=== PATIENT | female | born 1980 | race African-American/Black ===

== ENCOUNTER 2016-11-16 00:04 | Emergency (ER) | payer MEDICAID, OTHER ==
[~2016-11-16] VITALS: Ht 162.6 cm; Wt 77.1 kg
[~2016-11-16 00:04] MED LIST: ADALAT10 MG ORAL; AMOXICILLIN500 MG ORAL; TRAMADOL HCL50 MG ORAL
[2016-11-16] MEDS ORDERED: LORazepam Inj 2mg/ml 1ml IV ONE (00:45)
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
[2016-11-16 00:52] LABS: BASOPHILS % (AUTO) 1.9 % (0.0-2.0); EOSINOPHILS % (AUTO) 0.7 % (0.0-3.0); LYMPHOCYTES % (AUTO) 31.4 % (20.0-45.0); MEAN CORPUSCULAR HGB CONC 32.7 G/DL (32.0-36.0); MEAN CORPUSCULAR VOLUME 92 FL (80-99); MEAN PLATELET VOLUME 5.4 FL (6.5-10.1); MONOCYTES % (AUTO) 5.7 % (1.0-10.0); NEUTROPHILS % (AUTO) 60.4 % (45.0-75.0); PLATELET COUNT 403 K/UL (150-450); RED BLOOD COUNT 4.55 M/UL (4.20-5.40); RED CELL DISTRIBUTION WIDTH 15.2 % (11.6-14.8); WHITE BLOOD COUNT 10.1 K/UL (4.8-10.8)
[2016-11-16] MEDS ORDERED: Tubing IV Cassette IV ONE (00:52)
[2016-11-16 01:07] LABS: ALANINE AMINOTRANSFERASE 20 U/L (3-33); ALBUMIN/GLOBULIN RATIO 1.1 (1.0-2.7); ANION GAP 23 (5-15); ASPARTATE AMINO TRANSFERASE 27 U/L (5-40); CALCIUM 8.8 mg/dL (8.6-10.2); CARBON DIOXIDE 18 mEQ/L (20-30); CHLORIDE 100 mEQ/L (98-107); CREATININE 0.7 mg/dL (0.5-0.9); GLOMERULAR FILTRATION RATE > 60 mL/min (>60); HEMOLYSIS 98; SODIUM 141 mEQ/L (135-145); TOTAL PROTEIN 7.9 g/dL (6.6-8.7); TROPONIN I < 0.30 ng/mL (<=0.30)
[2016-11-16 01:17] LABS: CKMB < 1.5 ng/mL (< 3.8)
[2016-11-16] MEDS ORDERED: Metoprolol 50mg tab ORAL ONE (01:30)
[2016-11-16 02:05] VITALS: BP 135/89
[2016-11-16] MEDS ORDERED: ATENOLOL50 MG ORAL (02:33)
[2016-11-16 03:10] VITALS: BP 135/89
--- NOTE | 2016-11-16 10:56 | Diagnostic Imaging Report ---
Indication: Chest Pain Comparison: 10/25/15 A single view chest radiograph was obtained. Findings: Cardiomediastinal appearance is within normal limits for age. Pulmonary vascularity is appropriate. The diaphragmatic contour is smooth and costophrenic angles are sharp. No pleural effusions are identified. The bones are unremarkable. Impression: No acute findings
--- NOTE | 2016-11-19 18:04 | Cardiology Report ---
APPROVED REPORT EKG Measurement Heart [id number] Sinus tachycardia Possible Left atrial enlargement Borderline ECG
== END 2016-11-16 03:12 | disposition home or self-care (01) ==
LOC: EDBD 00:04 → EMR 01:05
DX: R07.9 Chest pain, unspecified (principal); I10 Essential (primary) hypertension; F43.0 Acute stress reaction; Z82.49 Family history of ischemic heart disease and other diseases of the circulatory system; Z91.14 Patient's other noncompliance with medication regimen
CPT/HCPCS: 36415; 71010; 80053; 82550; 82553; 84484; 85025; 93005; 96374; 96375

== ENCOUNTER 2016-11-29 15:44 | Emergency (ER) | payer OTHER ==
[~2016-11-29] VITALS: Ht 162.6 cm; Wt 78.9 kg
[~2016-11-29 15:44] MED LIST changes: +ATENOLOL50 MG ORAL
--- NOTE | 2016-11-29 16:24 | Emergency Room Report ---
History of Present Illness General Chief Complaint: Upper Respiratory Illness Source: Medical Record (SAYDA RODGERS) Present Illness HPI The patient is a 36-year-old female presenting with one month of cough and sore throat. The patient was seen in this emergency department 10 days prior for the same complaint and discharged with a prescription for atenolol. The patient states that she has had continued productive cough. Patient experiences a 10 out of 10 dull ache to the chest which occurs only with coughing and also has pain with swallowing. The patient denies any sick contacts or recent travel. The patient denies having a flu shot this year. The patient does admit to fever and chills Patient denies other symptoms including nausea, vomiting, abdominal pain, rash, shortness of breath (SAYDA RODGERS.Rebecca) Allergies: Coded Allergies: No Known Allergies (Unverified , 10/25/15) Patient History Past Medical History: see triage record Pertinent Family History: none Last Menstrual Period: 11/13 Now: No : 3 Para: 3 Reviewed Nursing Documentation: PMH: Agreed, PSxH: Agreed (SAYDA RODGERS P.ARaquel) Nursing Documentation-PMH Hx Hypertension: Yes (SAYDA RODGERS P.ARaquel) Review of Systems All Other Systems: negative except mentioned in HPI (SAYDA RODGERS P.ARaquel) Physical Exam Vital Signs Date Time Temp Pulse Resp B/P Pulse Ox O2 Delivery O2 Flow Rate FiO2 11/29/16 15:46 98.1 107 24 153/97 98 Room Air Sp02 EP Interpretation: reviewed, normal General Appearance: no apparent distress, alert, GCS 15, non-toxic Head: normocephalic, atraumatic Eyes: bilateral eye PERRL, bilateral eye normal inspection ENT: hearing grossly normal, normal pharynx, normal voice, TMs + canals normal , uvula midline, moist mucus membranes, tonsillar swelling, pharyngeal erythema , tonsillar exudate Neck: full range of motion, supple/symm/no masses Respiratory: chest non-tender, lungs clear, normal breath sounds, no respiratory distress, no accessory muscle use, no wheezing, speaking full sentences Gastrointestinal: normal bowel sounds, non tender, soft, non-distended, no guarding, no rebound Musculoskeletal: back normal, gait/station normal, normal range of motion, non- tender Neurologic: alert, oriented x3, responsive, motor strength/tone normal, sensory intact, speech normal Psychiatric: judgement/insight normal, memory normal, mood/affect normal, no suicidal/homicidal ideation Skin: normal color, no rash, warm/dry, well hydrated Lymphatic: adenopathy - cervical\ (SAYDA RODGERS P.A.) Medical Decision Making PA Attestation Dr. Rowe is my supervising physician. Patient management was discussed with my supervising physician (SAYDA RODGERS PCarlos) Diagnostic Impression: Primary Impression: Pharyngitis, acute ER Course The patient is a 36-year-old female presenting with one month of cough and sore throat. Differential diagnosis include but not limited to pharyngitis, sinusitis, AOM, bronchitis, PNA Physical exam: Afebrile. No apparent distress HEENT: There is bilateral tonsillar edema, erythema, and exudate. Uvula midline. Otherwise unremarkable. Lungs are clear to auscultation bilaterally. The patient insists on a chest x-ray Chest x-ray unremarkable. The patient will be treated for pharyngitis with amoxicillin. ER precautions are given (SAYDA RODGERS P.A.) ER Course I agree with PA HPI and PE, as well as their assessment/plan. I also concur with PA review of imaging and rhythm strip without additional interpretation. (HUI ROWE M.D.) Chest X-Ray Diagnostic Results EP Interpretation: Yes Findings: no consolidation, no effusion, no pneumothorax Number of Views: 1 PA Scribe Text I am acting as scribe for my supervising physician. My supervising physician's interpretation of the chest xrays are there is no consolidation, no effusion, no acute cardiopulmonary disease, no pneumothorax (SAYDA RODGERS P.A.) Last Vital Signs Date Time Temp Pulse Resp B/P Pulse Ox O2 Delivery O2 Flow Rate FiO2 11/29/16 16:04 107 24 Room Air 11/29/16 15:46 98.1 153/97 98 Status: improved (SAYDA RODGERS P.A.) Disposition: HOME, SELF-CARE Condition: Improved Scripts Guaifenesin/Dextromethorphan (Robitussin Cough-Chest Dm Liq) 118 Ml Liquid 10 ML PO Q4HR, #118 ML Prov: SAYDA RODGERS 11/29/16 Amoxicillin* (AMOXIL*) 500 Mg Capsule 500 MG ORAL Q12HR, #20 CAP Prov: SAYDA RODGERS 11/29/16 Referrals: NON PHYSICIAN (PCP) SAYDA RODGERS Nov 29, 2016 16:24 HUI ROWE M.D. Dec 01, 2016 03:47
[2016-11-29 16:55] VITALS: BP 153/97
[2016-11-29] MEDS ORDERED: AMOXICILLIN500 MG ORAL (17:07)
[2016-11-29] MEDS ORDERED: ROBITUSSIN COU118 M4 PO (17:07)
[2016-11-29 17:13] VITALS: BP 153/97
--- NOTE | 2016-11-30 10:07 | Diagnostic Imaging Report ---
Indication: Cough Technique: XRAY CHEST 1 V Comparison: 11/16/16 Findings: Cardiomediastinal silhouette is stable. There is no consolidation or pleural effusion. Artifact overlying the right apex limits evaluation. Osseous structures demonstrate no acute abnormality. Impression: Limited examination without obvious acute cardiopulmonary disease. Followup recommended as indicated.
== END 2016-11-29 17:16 | disposition home or self-care (01) ==
LOC: EMR 16:10
DX: J02.9 Acute pharyngitis, unspecified (principal); I10 Essential (primary) hypertension
CPT/HCPCS: 71010; 99284

== ENCOUNTER 2016-12-09 20:58 | Emergency (ER) | payer OTHER ==
[~2016-12-09] VITALS: Ht 162.6 cm; Wt 77.1 kg
[~2016-12-09 20:58] MED LIST changes: +ROBITUSSIN COU118 M4 PO
[2016-12-09] MEDS ORDERED: ARTIFICIAL TEAR15 ML LEFT EYE (21:45)
[2016-12-09 22:52] VITALS: BP 161/114
--- NOTE | 2016-12-13 13:12 | Emergency Room Report ---
History of Present Illness General Chief Complaint: Eye Problems Source: Patient Present Illness HPI Patient is a 36-year-old female who presented after acute onset of the increased left eye redness. Patient recently been seen for cough. She was noted to have increased red area to the left eye. Patient reported having a moderate pain. She denied visual changes. She had not been vomiting or having diarrhea. She denied prior history of blood thinner use or coagulopathy.she denied recent trauma Allergies: Coded Allergies: No Known Allergies (Unverified , 10/25/15) Patient History Past Medical History: see triage record Last Menstrual Period: nov Reviewed Nursing Documentation: PMH: Agreed, PSxH: Agreed Nursing Documentation-PMH Hx Hypertension: Yes Review of Systems All Other Systems: negative except mentioned in HPI Physical Exam Vital Signs Date Time Temp Pulse Resp B/P Pulse Ox O2 Delivery O2 Flow Rate FiO2 12/09/16 21:17 98.2 123 18 161/114 98 Room Air General Appearance: well appearing, no apparent distress, alert, GCS 15 Head: normocephalic, atraumatic Eyes: bilateral eye PERRL, bilateral eye other - subconjunctival hemorrage ENT: hearing grossly normal, normal voice Neck: full range of motion, supple Respiratory: no respiratory distress, speaking full sentences Cardiovascular #1: normal peripheral pulses, regular rate, rhythm, no edema Gastrointestinal: normal inspection, soft Musculoskeletal: no calf tenderness Neurologic: normal inspection, alert, oriented x3, responsive, service tech/welder III-XII nml as tested, normal gait Psychiatric: mood/affect normal Skin: no rash Medical Decision Making Diagnostic Impression: Primary Impression: Subconjunctival hemorrhage of left eye ER Course Patient presented for eye redness.Differential diagnosis included but wasn't limited to glaucoma, iritis, corneal abrasion, bacterial conjunctivitis, viral conjunctivitis, subconjunctival hemorrhage. Patient's benign exam and does not appear to require any further imaging or laboratory testing at this time. The patient was noted to have exam consistent with is a conjunctival hemorrhage. This appears to be due to the patient's recent cough.The patient is advised to follow up with primary care doctor in 1-2 days. Patient is advised to return if any worsening condition or if any changes in status that are concerning. Last Vital Signs Date Time Temp Pulse Resp B/P Pulse Ox O2 Delivery O2 Flow Rate FiO2 12/09/16 22:52 98.2 85 18 161/114 98 Room Air Status: improved Disposition: HOME, SELF-CARE Condition: Stable Scripts Dextran 70/Hypromellose (ARTIFICIAL TEARS EYE DROPS*) 15 Ml Drops 1 DROP LEFT EYE THREE TIMES A DAY, #15 ML 0 Refills Prov: Musa Lozada 12/09/16 Referrals: [facility],REFERRING (PCP) Patient Instructions: Subconjunctival Hemorrhage Musa Lozada Dec 13, 2016 13:12
== END 2016-12-09 22:54 | disposition home or self-care (01) ==
LOC: EMR 21:51
DX: H11.32 Conjunctival hemorrhage, left eye (principal); I10 Essential (primary) hypertension
CPT/HCPCS: 99283

== ENCOUNTER 2018-05-05 14:07 | Emergency (ER) | payer MEDICAID, OTHER ==
[~2018-05-05] VITALS: Ht 162.6 cm; Wt 93.4 kg
[~2018-05-05 14:07] MED LIST changes: +ARTIFICIAL TEAR15 ML LEFT EYE
--- NOTE | 2018-05-05 14:38 | Emergency Room Report ---
History of Present Illness General Chief Complaint: Female Urogenital Problems Source: Patient Present Illness HPI 37-year-old female presents to the emergency department complaining of strong malodorous urine along with urinary frequency, fatigue. 1 week. Patient states she's been taking Macrobid which was prescribed by her PCP with no relief of her symptoms. Patient denies recent unprotected intercourse she denies nausea, vomiting, fevers, chills, external genital lesions, rashes, swollen tender lymph nodes or joint pain. Patient denies low back pain she reports abdominal bloating in the lower portion of the abdomen she denies tenderness. Denies constipation or diarrhea. Allergies: Coded Allergies: No Known Allergies (Unverified , 10/25/15) Patient History Past Medical History: see triage record Past Surgical History: none Pertinent Family History: none Last Menstrual Period: unk Now: No Reviewed Nursing Documentation: PMH: Agreed; PSxH: Agreed Nursing Documentation-PMH Past Medical History: No History, Except For Hx Hypertension: Yes Review of Systems All Other Systems: negative except mentioned in HPI Physical Exam Vital Signs Date Time Temp Pulse Resp B/P (MAP) Pulse Ox O2 Delivery O2 Flow Rate FiO2 05/05/18 14:19 97.9 113 20 134/93 98 97.9 Sp02 EP Interpretation: reviewed, normal General Appearance: no apparent distress, alert, GCS 15, non-toxic Head: normocephalic, atraumatic ENT: hearing grossly normal, normal voice Neck: full range of motion Respiratory: lungs clear, normal breath sounds, speaking full sentences Cardiovascular #1: tachycardia Gastrointestinal: non tender, soft Rectal: deferred Genitourinary: normal inspection, no CVA tenderness Musculoskeletal: back normal, gait/station normal, normal range of motion, non- tender Neurologic: alert, oriented x3, responsive, motor strength/tone normal, sensory intact, speech normal, grossly normal Psychiatric: judgement/insight normal Skin: normal color, no rash, warm/dry, well hydrated Medical Decision Making PA Attestation Dr. nunez is my supervising Physician whom patient management has been discussed with. Diagnostic Impression: Primary Impression: Urinary tract infection Qualified Codes: N30.01 - Acute cystitis with hematuria ER Course 37-year-old female presents to the emergency department complaining of strong malodorous urine along with urinary frequency, fatigue. 3 days. Patient states she's been taking Macrobid which was prescribed by her PCP with no relief of her symptoms. Patient denies recent unprotected intercourse she denies nausea, vomiting, fevers, chills, external genital lesions, rashes, swollen tender lymph nodes or joint pain. Patient denies low back pain she reports abdominal bloating in the lower portion of the abdomen she denies tenderness. Denies constipation or diarrhea. Ddx considered but are not limited to UTi , Pyelo, STI, Stone, Cystitis, just to name a few. Vital signs: pt. is afebrile, however tachycardic H&PE are most consistent with UTI ORDERS: - UA labs are attached :20-30 white blood cells, many bacteria, 2+ leukocytes and negative nitrites -Urine HCG: Negative ED INTERVENTIONS: None required at this time. DISCHARGE: At this time pt. is stable for d/c to home. Will provide printed patient care instructions, and any necessary prescriptions. Care plan and follow up instructions have been discussed with the patient prior to discharge. Labs Test 05/05/18 14:41 Urine Color Brown Urine Appearance Turbid Urine pH 6 (4.5-8.0) Urine Specific [place] 1.020 (1.005-1.035) Urine Protein 2+ (NEGATIVE) Urine Glucose (UA) Negative (NEGATIVE) Urine Ketones 1+ (NEGATIVE) Urine Occult Blood 2+ (NEGATIVE) Urine Nitrite Negative (NEGATIVE) Urine Bilirubin Negative (NEGATIVE) Urine Urobilinogen 4 MG/DL (0.0-1.0) Urine Leukocyte Esterase 2+ (NEGATIVE) Urine RBC 2-4 /HPF (0 - 2) Urine WBC 20-30 /HPF (0 - 2) Urine Squamous Epithelial Cells Moderate /LPF (NONE/OCC) Urine Bacteria Many /HPF (NONE) Urine HCG, Qualitative Negative (NEGATIVE) Last Vital Signs Date Time Temp Pulse Resp B/P (MAP) Pulse Ox O2 Delivery O2 Flow Rate FiO2 05/05/18 14:19 97.9 113 20 134/93 98 97.9 Disposition: HOME, SELF-CARE Condition: Stable Scripts Fluconazole (FLUCONAZOLE) 100 Mg Tablet 100 MG ORAL DAILY for 1 Day, #3 TAB 0 Refills Prov: Geraldine Coreas 05/05/18 Phenazopyridine Hcl* (PYRIDIUM*) 200 Mg Tablet 200 MG ORAL THREE TIMES A DAY for 3 Days, #3 TAB 0 Refills Prov: Geraldine Coreas 05/05/18 Trimethoprim/Sulfamethoxazole 160/800* (BACTRIM DS TABLET*) 1 Each Tablet 1 TAB ORAL TWICE A DAY for 7 Days, #14 TAB Prov: Geraldine Coreas 05/05/18 Departure Forms: Return to Work Return to Work Date: May 08, 2018 Work Restrictions: None Other Restrictions: may return sooner if symptoms resolve. Return to Full Activity: May 08, 2018 Patient Instructions: Urinary Tract Infection Additional Instructions: Take medications as directed. Follow up with a Primary Care Provider in 3-5 days, even if your symptoms have resolved. --Please review list of primary care clinics, if you do not already have a primary care provider Return sooner to ED if new symptoms occur, or current symptoms become worse. - Please note that this Emergency Department Report was dictated using [employer] technology software, occasionally this can lead to erroneous entry secondary to interpretation by the dictation equipment. Geraldine Coreas May 05, 2018 14:38
[2018-05-05 14:53] LABS: APPEARANCE,URINE TURBID; BILIRUBIN, URINE NEGATIVE (NEGATIVE); COLOR,URINE BROWN; GLUCOSE, URINE (UA) NEGATIVE (NEGATIVE); KETONES,URINE 1+ (NEGATIVE); LEUKOCYTE ESTERASE ,URINE 2+ (NEGATIVE); NITRITE,URINE NEGATIVE (NEGATIVE); PH,URINE 6 (4.5-8.0); PROTEIN,URINE 2+ (NEGATIVE); UROBILINOGEN,URINE 4 MG/DL (0.0-1.0)
[2018-05-05] MEDS ORDERED: BACTRIM DS TAB1 EAC1 ORAL (15:48)
[2018-05-05] MEDS ORDERED: PHENAZOPYRIDIN200 MG ORAL (15:48)
[2018-05-05] MEDS ORDERED: FLUCONAZOLE100 MG ORAL (15:55)
[2018-05-05 16:02] VITALS: BP 166/111
[2018-05-05 16:03] VITALS: BP 166/111
== END 2018-05-05 16:04 | disposition home or self-care (01) ==
LOC: EMR 14:55
DX: N39.0 Urinary tract infection, site not specified (principal); I10 Essential (primary) hypertension
CPT/HCPCS: 81003; 81025; 87086; 87181; 99284

== ENCOUNTER 2019-08-18 14:45 | Emergency (ER) | payer MEDICAID ==
[~2019-08-18] VITALS: Ht 162.6 cm; Wt 80.3 kg
[~2019-08-18 14:45] MED LIST changes: +BACTRIM DS TAB1 EAC1 ORAL; +FLUCONAZOLE100 MG ORAL; +PHENAZOPYRIDIN200 MG ORAL
--- NOTE | 2019-08-18 14:55 | NUR ---
ED Nurse Note: Patient walked into ED from home c/o heavy vaginal bleeding for 1 week. patient reports she was changing 6-7 pads a day for last week, and now she is changing 2-3 pads a day. patient c/o fatigue and weakness. patient is alert awake x4 ambulatory steady gait, breathing unlabored and even, speaking in full sentences.
--- NOTE | 2019-08-18 15:43 | NUR ---
ED Nurse Note: patient taken to US
[2019-08-18 15:55] LABS: BASOPHILS % (AUTO) 1.7 % (0.0-2.0); EOSINOPHILS % (AUTO) 1.4 % (0.0-3.0); HEMATOCRIT 36.7 % (37.0-47.0); HEMOGLOBIN 11.2 G/DL (12.0-16.0); LYMPHOCYTES % (AUTO) 22.5 % (20.0-45.0); MEAN CORPUSCULAR VOLUME 79 FL (80-99); MONOCYTES % (AUTO) 9.2 % (1.0-10.0); NEUTROPHILS % (AUTO) 65.3 % (45.0-75.0); PLATELET COUNT 415 K/UL (150-450); RED BLOOD COUNT 4.67 M/UL (4.20-5.40); RED CELL DISTRIBUTION WIDTH 14.7 % (11.6-14.8); WHITE BLOOD COUNT 9.2 K/UL (4.8-10.8)
[2019-08-18 16:03] LABS: INR 0.9 (0.9-1.1)
[2019-08-18 16:25] LABS: ALANINE AMINOTRANSFERASE 27 U/L (12-78); ALBUMIN 3.5 G/DL (3.4-5.0); ALBUMIN/GLOBULIN RATIO 0.8 (1.0-2.7); ALKALINE PHOSPHATASE 73 U/L (46-116); ANION GAP 9 mmol/L (5-15); ASPARTATE AMINO TRANSFERASE 12 U/L (15-37); BILIRUBIN,TOTAL 0.2 MG/DL (0.2-1.0); BLOOD UREA NITROGEN 14 mg/dL (7-18); CALCIUM 9.5 MG/DL (8.5-10.1); CARBON DIOXIDE 24 MMOL/L (21-32); CHLORIDE 105 MMOL/L (98-107); CREATININE 0.7 MG/DL (0.55-1.30); POTASSIUM 3.4 MMOL/L (3.5-5.1); SODIUM 138 MMOL/L (136-145)
--- NOTE | 2019-08-18 16:44 | Diagnostic Imaging Report ---
Indication:Lower abdominal and pelvic pain Technique: Grayscale and duplex Doppler imaging of the pelvis performed utilizing a transabdominal and endovaginal scan. Comparison: None Findings: The size, contour, and configuration of the uterus is within normal limits. The endometrium is uniformly echogenic and normal in thickness. Endometrium measures 4.2 mm. Uterus measures 9 x 5.6 x 4.6 cm. The ovaries appear normal bilaterally with good dopplerable blood flow. Few ovarian follicles are noted. There is a small amount of free fluid identified. Right ovary measures 4.8 x 4.4 x 2.4 cm. Left ovary 4.5 x 3.3 x 3.5 cm. IMPRESSION: Negative pelvic ultrasound. No acute findings.
[2019-08-18] MEDS ORDERED: FERROUS SULFAT325 MG ORAL (17:00)
--- NOTE | 2019-08-18 17:00 | Emergency Room Report ---
History of Present Illness General Chief Complaint: Female Urogenital Problems Source: Patient Present Illness HPI 39-year-old female presents with vaginal bleeding since July 31, patient has been going up to 8 pads now down to 2 pads, patient was feeling lightheaded , x1 day, no aggravating relieving factors severity was moderate lasting throughout the day, patient was worried about her blood loss, patient denies any chest pain shortness of breath, no dyspnea on exertion, patient presents for evaluation of her vaginal bleeding. Allergies: Coded Allergies: No Known Allergies (Unverified , 10/25/15) Patient History Past Medical History: see triage record Last Menstrual Period: 08/04/19 Now: No Reviewed Nursing Documentation: PMH: Agreed; PSxH: Agreed Nursing Documentation-PMH Past Medical History: No History, Except For Hx Hypertension: Yes Review of Systems All Other Systems: negative except mentioned in HPI Physical Exam Vital Signs Date Time Temp Pulse Resp B/P (MAP) Pulse Ox O2 Delivery O2 Flow Rate FiO2 08/18/19 14:48 97.9 98 18 157/105 (122) 98 Sp02 EP Interpretation: reviewed, normal General Appearance: well appearing, no apparent distress, alert Head: normocephalic, atraumatic Eyes: bilateral eye PERRL, bilateral eye EOMI ENT: uvula midline, moist mucus membranes Neck: supple, thyroid normal, supple/symm/no masses Respiratory: lungs clear, no respiratory distress, no retraction, no accessory muscle use Cardiovascular #1: normal peripheral pulses, regular rate, rhythm, no edema, no gallop, no murmur Gastrointestinal: non tender, soft, no guarding, no rebound Musculoskeletal: normal inspection Neurologic: alert, oriented x3 Psychiatric: mood/affect normal Skin: no rash, warm/dry Medical Decision Making Diagnostic Impression: Primary Impression: Dysfunctional uterine bleeding ER Course 39-year-old female presents with dysfunctional uterine bleeding, patient was concerned she may be losing too much blood, differential diagnosis includes abnormal vaginal bleeding, dysfunction uterine bleeding, ectopic , Patient with negative ultrasound, hemoglobin is stable at 11, disposition home with return precautions patient has follow-up with gynecology this week Laboratory Tests Test 08/18/19 15:32 White Blood Count 9.2 K/UL (4.8-10.8) Red Blood Count 4.67 M/UL (4.20-5.40) Hemoglobin 11.2 G/DL (12.0-16.0) L Hematocrit 36.7 % (37.0-47.0) L Mean Corpuscular Volume 79 FL (80-99) L Mean Corpuscular Hemoglobin 23.9 PG (27.0-31.0) L Mean Corpuscular Hemoglobin Concent 30.4 G/DL (32.0-36.0) L Red Cell Distribution Width 14.7 % (11.6-14.8) Platelet Count 415 K/UL (150-450) Mean Platelet Volume 5.2 FL (6.5-10.1) L Neutrophils (%) (Auto) 65.3 % (45.0-75.0) Lymphocytes (%) (Auto) 22.5 % (20.0-45.0) Monocytes (%) (Auto) 9.2 % (1.0-10.0) Eosinophils (%) (Auto) 1.4 % (0.0-3.0) Basophils (%) (Auto) 1.7 % (0.0-2.0) Prothrombin Time 9.7 SEC (9.30-11.50) Prothrombin Time INR 0.9 (0.9-1.1) PTT 27 SEC (23-33) Sodium Level 138 MMOL/L (136-145) Potassium Level 3.4 MMOL/L (3.5-5.1) L Chloride Level 105 MMOL/L (98-107) Carbon Dioxide Level 24 MMOL/L (21-32) Anion Gap 9 mmol/L (5-15) Blood Urea Nitrogen 14 mg/dL (7-18) Creatinine 0.7 MG/DL (0.55-1.30) Estimate Glomerular Filtration Rate > 60 mL/min (>60) Glucose Level 100 MG/DL (74-106) Calcium Level 9.5 MG/DL (8.5-10.1) Total Bilirubin 0.2 MG/DL (0.2-1.0) Aspartate Amino Transferase (AST) 12 U/L (15-37) L Alanine Aminotransferase (ALT) 27 U/L (12-78) Alkaline Phosphatase 73 U/L (46-116) Total Protein 7.8 G/DL (6.4-8.2) Albumin 3.5 G/DL (3.4-5.0) Globulin 4.3 g/dL Albumin/Globulin Ratio 0.8 (1.0-2.7) L Lipase 231 U/L (73-393) Human Chorionic Gonadotropin, Quant < 1 mIU/mL (1-6) L CT/MRI/US Diagnostic Results CT/MRI/US Diagnostic Results : Impression Patient : NIYA STRINGER Referring Physician: Mark Dominguez MD ID Number: [id number] Service Date: 08/18/19 : 1980 Report Date: 08/18/19 Gender: F Accession No.: [id number] Location: [facility] Procedure: US Pelvis TransVag Complete Indication:Lower abdominal and pelvic pain Technique: Grayscale and duplex Doppler imaging of the pelvis performed utilizing a transabdominal and endovaginal scan. Comparison: None Findings: The size, contour, and configuration of the uterus is within normal limits. The endometrium is uniformly echogenic and normal in thickness. Endometrium measures 4.2 mm. Uterus measures 9 x 5.6 x 4.6 cm. The ovaries appear normal bilaterally with good dopplerable blood flow. Few ovarian follicles are noted. There is a small amount of free fluid identified. Right ovary measures 4.8 x 4.4 x 2.4 cm. Left ovary 4.5 x 3.3 x 3.5 cm. IMPRESSION: Negative pelvic ultrasound. No acute findings. Dictated By: Adam Smiley MD Electronically Signed By: Adam Smiley MD Signed Date/Time 08/18/19 9050 CC: Mark Dominguez MD Last Vital Signs Date Time Temp Pulse Resp B/P (MAP) Pulse Ox O2 Delivery O2 Flow Rate FiO2 08/18/19 14:48 97.9 98 18 157/105 (122) 98 Disposition: HOME, SELF-CARE Condition: Stable Scripts Ferrous Sulfate* (FERROUS SULFATE*) 325 Mg Tablet 325 MG ORAL DAILY, #30 TAB 0 Refills Prov: Mark Dominguez MD 08/18/19 Referrals: [facility],REFERRING (PCP) [facility] Marlena Belcher [facility]. [facility] Patient Instructions: Dysfunctional Uterine Bleeding Additional Instructions: The patient was provided with discharge instructions, notified to follow-up with a primary care doctor and or specialist in the next 24-48 hours, and to return to the ED if they have worsening of their symptoms. Please note that this report is being documented using DRAGON technology. This can lead to erroneous entry secondary to incorrect interpretation by the dictating instrument. Mark Dominguez MD Aug 18, 2019 17:00
[2019-08-18 17:08] VITALS: BP 145/92
--- NOTE | 2019-08-18 17:08 | NUR ---
ER DISCHARGE NOTE: Patient is cleared to be discharged per ERMD, pt is aox4, on room air, with stable vital signs. pt was given dc and prescription instructions, pt was able to verbalize understanding, pt id band and iv site removed without complications. pt is able to ambulate with steady gait. pt took all belongings.
== END 2019-08-18 17:08 | disposition home or self-care (01) ==
LOC: EMR 15:30
DX: N93.9 Abnormal uterine and vaginal bleeding, unspecified (principal); I10 Essential (primary) hypertension; R10.2 Pelvic and perineal pain
CPT/HCPCS: 36415; 76830; 76856; 80053; 83690; 84702; 85025; 85610; 85730; 86850; 86900; 86901; Z7502; 99284